=== PATIENT | female | born 1950 | race Hispanic/Latino ===

== ENCOUNTER 2020-04-05 16:45 | Emergency (ER) | payer SELFPAY ==
--- NOTE | ~2020-04-05 | XR_ITS ---
EXAMINATION: XR hip RT 2V w AP pelvis DATE: 04/05/2020 18:57 INDICATION: Right hip pain. TECHNIQUE: An anteroposterior view of the pelvis and 2 views of right hip were obtained. COMPARISON: None. FINDINGS: There is dextrocurvature of lumbar spine. No acute fracture. There is sclerosis in right fe moral head with collapse of the articular surface, consistent with osteonecrosis. There is severe rig ht hip osteoarthritis. There is mild left hip osteoarthritis. There is mild lumbar spondylosis. IMPRESSION: 1. Right femoral head osteonecrosis and secondary severe right hip osteoarthritis. 2. Mild left hip osteoarthritis. Reviewed, dictated and finalized at location A. CRIPTIONIST IMPRESSION: 1. Right femoral head osteonecrosis and secondary severe right hip osteoarthrit is. 2. Mild left hip osteoarthritis.
[2020-04-05 17:30] VITALS: BP 150/87; PULSE 90; RESP 16; TEMP 36.3; O2SAT 96
--- NOTE | 2020-04-05 17:39 | ED.GENADULT ---
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 The patient is recently moved here from [place]. She had a slip and fall about a year ago in [place] was never seen by a physician, but has had right hip pain since that time. In the last week her hip pain has been worsening and today became unbearable. She has been treated intermittently at home with some ibuprofen, she takes no medications otherwise. Her last dose of ibuprofen was 1 week ago. Denies any other joint pain, denies any bowel or bladder symptoms. Onset (ago): month(s) Pain Consistency: constant Relieving factors: none Exacerbating factors: movement Associated symptoms: denies other symptoms Treatments prior to arrival: NSAID Related Data Allergies Allergy/AdvReac Type Severity Reaction Status Date / Time No Known Allergies Allergy Verified 04/05/20 18:59 Review of Systems Review of Systems: All systems reviewed & are unremarkable except as noted in HPI and below Exam Const: General: no acute distress and alert Orientation/consciousness: patient oriented x3 Resp: Effort & Inspection: normal respiratory effort Auscultation: clear to auscultation bilaterally Cardio: Rate: regular rate Rhythm: regular rhythm GI: GI Palp: Yes Soft to palpation Skin: General skin exam: normal color Extrem: Right lower extremity: normal to inspection, no joint enlargement and hip/thigh Details: tenderness (right hip and groin) Location: of the hip and abnormal ROM Details: pain with resistance to Details: to ADduction, to ABduction, to internal rotation and to external rotation and pain with passive ROM during Other: Very limited range of motion in the right hip, joint is tight and painful. Course Course Emergency Course: Using video intrepreter xray findings were discussed with patient and daughter. I explained the disease process of both osteoarthritis and osteonecrosis. The daughter asked if the mother could be treated immediately because of the pain, I explained to her that she has not seen a physician in quite some time and while this is urgent is not emergent and she needs a medical work-up prior. I did speak with Dr. Werner regarding this patient and he stated that she should be referred via primary care. The daughter is also concerned about the mother's lack of medical insurance, [facility] did meet with them. We will increase her pain medication and refer to primary care for referral to orthopedic surgery. The daughter does want everything done here if possible. Medical Decision Making Imaging Data Radiologist's impression: osteonecrosis due to osteoarthritis Discharge Plan Discharge Clinical Impression: Osteonecrosis of right hip Osteoarthritis Qualifiers: Osteoarthritis location: multiple joints Osteoarthritis type: primary Qualified Code(s): M89.49 - Other hypertrophic osteoarthropathy, multiple sites Patient Disposition: Home, Self-Care Condition: Stable Instructions: Antibiotic Form, Osteoarthritis (ED) Additional Instructions: Your x-ray showed that you have a osteonecrosis of the right hip. You need to follow-up with your medical doctor for clearance and then referral to an orthopedic surgeon for possible hip replacement surgery. In the meantime take your pain medication as prescribed, purchase a cane. Prescriptions: New tramadol 50 mg tablet 50 mg PO Q6H PRN (Reason: pain) Qty: 20 RF: 0 Follow-up/Referrals: Brandon Kumar MD [Physician] - PHYSICIAN,JEWELRY MOLD MAKER [Primary Care Provider] - Time of Disposition: 20:16
--- NOTE | 2020-04-05 18:56 | PC.NURSE ---
Pt in xray via stretcher at this time.
[2020-04-05] MEDS: IBUPROFEN 600 MG TABLET PO (19:12)
== END 2020-04-05 20:35 | disposition home or self-care (01) ==
PROVIDERS: Emergency Provider Emergency Medicine
DX: M89.49 Other hypertrophic osteoarthropathy, multiple sites (principal); M16.7 Other unilateral secondary osteoarthritis of hip; M90.551 Osteonecrosis in diseases classified elsewhere, right thigh
CPT/HCPCS: 73502; 99283; A9270